=== PATIENT | female | born 1960 | race Caucasian/White ===

== ENCOUNTER 2019-08-05 23:50 | Inpatient (IN) | payer MEDICAID ==
[~2019-08-05] VITALS: Ht 152.4 cm; Wt 96.2 kg
[2019-08-06] MEDS ORDERED: PROAIR HFA8.5 GM INH (00:59)
[2019-08-06] MEDS ORDERED: ASPIRIN ADULT L81 M1 PO (01:00)
[2019-08-06] MEDS ORDERED: LIPITOR20 MG PO (01:00)
[2019-08-06] MEDS ORDERED: BUSPAR5 MG PO (01:02)
[2019-08-06] MEDS ORDERED: VITAMIN D350000 UNIT PO (01:03)
[2019-08-06] MEDS ORDERED: COLACE100 MG PO (01:04)
[2019-08-06] MEDS ORDERED: DEPAKOTE DR500 MG PO (01:04)
[2019-08-06] MEDS ORDERED: EPIPEN 2-P0.3 MG/0.3 IM (01:05)
[2019-08-06] MEDS ORDERED: FERROUS SULFAT325 MG PO (01:06)
[2019-08-06] MEDS ORDERED: TRELEGY ELLIPT1 EACH INH (01:07)
[2019-08-06] MEDS ORDERED: NATURE'S BLEND F1 MG PO (01:08)
[2019-08-06] MEDS ORDERED: IBUPROFEN600 MG PO (01:09)
[2019-08-06] MEDS ORDERED: LACTULOSE10 GM PO (01:10)
[2019-08-06] MEDS ORDERED: Synthroid,Levo25 MCG PO (01:11)
[2019-08-06] MEDS ORDERED: LORATADINE10 M3 PO (01:11)
[2019-08-06] MEDS ORDERED: COZAAR100 MG PO (01:12)
[2019-08-06] MEDS ORDERED: OMEPRAZOLE MAGN20 MG PO (01:13)
[2019-08-06] MEDS ORDERED: LOPRESSOR25 MG PO (01:13)
[2019-08-06] MEDS ORDERED: ZENPEP PO (01:18)
[2019-08-06] MEDS ORDERED: SEROQUEL25 MG PO (01:23)
[2019-08-06] MEDS ORDERED: TRAZODONE150 MG PO (01:25)
[2019-08-06] MEDS ORDERED: EFFEXOR XR75 MG PO (01:26)
[2019-08-06] MEDS ORDERED: VITAMIN B-1100 M1 PO (01:27)
[2019-08-06 05:00] VITALS: BP 115/70
--- NOTE | 2019-08-06 05:00 | NUR ---
PHAN CURTIS a 59 year old F admitted via stretcher from the OTHER as a voluntary admission. Arrived on unit at 0500. ALLERGIES: BEE VENOM. Vital signs are: [id number] 115/70. The client's guardian,Evan Lynn,gave verbal consent via telephone for the following forms with stated understanding: Authorization For The Release of Medical Information, Clothing List, Consent to Voluntary Admission and Hospitalization, Consent and Release Forms/Receipt of Rights, Acknowledgement of Advance Directive Information, Behavioral Health Consent Form, and Informed Consent of Medications. Admitted under the services of Dr. GAVINO GILES,[facility]. A search was conducted and hazardous articles were removed. Client was oriented to the unit. Patient irritable and paranoid during admission. ANDREI RODGERS A
--- NOTE | 2019-08-06 05:25 | NUR ---
Skin assessment done and no wounds seen. MD notified and awaiting admission orders.
--- NOTE | 2019-08-06 05:29 | NUR ---
CALLED HOSPITALIST [phone], INFORMED OF NEW ADMISSION AND MED REC BEING COMPLETE READY FOR REVIEW. STATED TO PLACE CONSULT UNDER . NO OTHER ORDERS RECEIVED.
[2019-08-06 06:11] VITALS: BP 115/70
[2019-08-06 07:39] LABS: VALPROIC ACID (DEPAKENE) 49.4 ug/ml (50-100)
[2019-08-06 07:44] LABS: THYROID STIM HORMONE (HS) 3.05 uIU/ml (0.358-4.75)
--- NOTE | 2019-08-06 08:07 | NUR ---
PT AWAKE, ALERT AND VERBAL. RESPS EASY AND EVEN ON ROOM AIR. EATING BREAKFAST WITH PEERS IN DINING ROOM AT THIS TIME. DU PMHNP-BC ON UNIT TO SEE PT AT THIS TIME, UPDATE GIVEN.
[2019-08-06 08:26] LABS: VITAMIN D, 25-HYDROXY 29.4 ng/mL (30-100)
[2019-08-06 08:49] VITALS: BP 115/70
--- NOTE | 2019-08-06 08:53 | NUR ---
JEREL SOUZA MADE AWARE OF ADMISSION THIS MORNING AND THAT PT WAS SIGNED INTO UNIT BY LEGAL GUARDIAN.
--- NOTE | 2019-08-06 10:25 | NUR ---
AND ON UNIT TO SEE PT AT THIS TIME. MADE AWARE PT'S HOME MEDICATIONS HAVE NOT YET BEEN RECONCILED. ALSO MADE AWARE OF NEED FOR SKIN TEAR ORDERS TO OPEN AREA ON RIGHT NECK/SHOULDER AREA.
--- NOTE | 2019-08-06 15:15 | NUR ---
SPOKE TO VIA TELEPHONE, MADE AWARE HOME MEDICAL MEDICATIONS HAVE NOT YET BEEN CONTINUED.
--- NOTE | 2019-08-06 16:50 | NUR ---
MED REC REVIEWED AND UPDATED PER LONGTERM RECORDS, DOSAGES REVIEWED WITH ZE SURVIVAL SPECIALIST AT THIS TIME, NNO RECEIVED, WILL REVIEW WITH IN THE MORNING PER SURVIVAL SPECIALIST RECOMMENDATION.
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
--- NOTE | 2019-08-06 17:48 | NUR ---
PSYCHOSOCIAL HISTORY COMPLETED THIS DATE.
[2019-08-06 19:59] VITALS: BP 110/68
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
--- NOTE | 2019-08-07 02:09 | NUR ---
pulled dresssing to shoulder off again
--- NOTE | 2019-08-07 04:55 | NUR ---
24 HR chart check completed.
--- NOTE | 2019-08-07 06:10 | NUR ---
LABS DRAWN BUT INBOUND SALES REPRESENTATIVE SAID SHE WAS IRRITABLE AND DIFFICULTY TO REDIRECT
[2019-08-07 06:30] LABS: BASO % 0.4 % (0.0-1.0); EOS # 0.1 10*3/uL (0.0-0.4); EOS % 1.9 % (1.0-4.0); HEMATOCRIT 41.2 % (37.0-47.0); HEMOGLOBIN 13.2 g/dl (12.0-16.0); LYMPH % 39.7 % (27.0-41.0); MONO # 1.5 10*3/uL (0.1-1.0); MONO % 19.2 % (3.0-9.0); NEUT # 2.8 10*3/uL (2.3-7.9); NEUT % 37.5 % (47.0-73.0); PLATELET COUNT AUTOMATED 281 10*3/uL (130-400); WHITE BLOOD COUNT 7.5 10*3/uL (4.8-10.8)
[2019-08-07 06:40] LABS: ALBUMIN 2.7 gm/dl (3.1-4.5); BUN 8 mg/dl (7-24); CHLORIDE 108 mmol/L (98-107); POTASSIUM 4.2 mmol/L (3.5-5.1); SODIUM 141 mmol/L (136-145)
[2019-08-07 06:44] LABS: ALKALINE PHOSPHATASE 50 U/L (45-117); CREATININE 0.48 mg/dL (0.55-1.02); SGOT/AST 12 IU/L (3-35); SGPT/ALT 17 U/L (12-78); TOTAL PROTEIN 5.9 gm/dL (6.4-8.2)
--- NOTE | 2019-08-07 07:45 | NUR ---
HOME MEDICATIONS REVIEWED WITH , HE STATES HE WILL ADJUST.
--- NOTE | 2019-08-07 07:54 | NUR ---
PHAN CURITS [id number] Please refer to the physician's history and physical for past medical history, comorbid conditions, and allergies. Diagnosis: SCHIZOAFFECTIVE DISORDER Casa Score: 20,LOW OR NO RISK WOUND DESCRIPTIONS: Wound Number: 1 Location of the wound: right clavicle Type of wound: scab Thickness: Partial Size: 0.2cm x 0.5cm x <0.1cm Tunneling: none Undermining: none Sinus Tract: none Presence of Exudate: none Amount: None Color: Red Odor: None Periwound Skin Appearance: Normal Wound edges: approximated Pain (associated with wound): none at time of assessment How does patient state this happened? pt states she picked the area because she was itchy Surface the patient is resting on: Proform SKIN PREVENTION RECOMMENDATION: 1. Pressure redistribution support surface as appropriate 2. Elevate heels 3. Remove boots/TEDS every shift and reapply 4. Head of bed 30 degrees as tolerated 5. Assess nutrition and hydration 6. Manage moisture 7. Avoid the use of containment devices while in bed 8. Use absorptive products on surfaces limit layers of linens on bed 9. Turn and reposition every 1-2 hours in bed and every 1 hour in chair as tolerated 10. Weight shifts every 15 minutes while up in chair 11. Offloading with pillows or device to keep heels elevated off bed 12. Monitor skin at least every shift 13. Inspect under medical devices twice a day WOUND TREATMENT RECOMMENDATIONS: Clarify skin tear guidelines: Cleanse right clavicle with nss and apply sureprep around the wound hydrogel to wound bed and cover with bandaid daily and prn for soiling.
[2019-08-07 07:55] VITALS: BP 117/65
--- NOTE | 2019-08-07 08:09 | NUR ---
PHYSICAL THERAPY Screen received as well as orders for PT will follow, thank you. Tia Connelly PT
--- NOTE | 2019-08-07 08:15 | NUR ---
Treatment Plan meeting was held with Dr. Akhtar, RN, AT, SWEATBAND MAKER-S and Bingo Worker in attendance. Plan for discharge at the end of the week or Beginning of next week. Pt. is a Resident of [facility]. Will reach out to facility today to discuss discharge planning.
--- NOTE | 2019-08-07 08:38 | NUR ---
Dr. Espinosa stated to put wound care recommendations in the hospitalist office for Dr. Corral.
--- NOTE | 2019-08-07 08:38 | NUR ---
Nursing screen and Occupational Therapy referral received. Thank you. Osiris Duran OTR/L
--- NOTE | 2019-08-07 09:15 | NUR ---
ON UNIT TO SEE PT AT THIS TIME.
--- NOTE | 2019-08-07 11:40 | NUR ---
AM GROUP/EXERCISE AND CURRENT EVENTS PT DID NOT ATTEND MORNING GROUP THERAPY, PT WAS STILL IN BED SLEEPING.
--- NOTE | 2019-08-07 12:17 | NUR ---
Spoke with Elmer in Admissions at [facility]. Notified of Plans to discharge at the end of the week or Beginning of Next week. Provided with Updates and Faxed Clinical Updates to Facility [phone].
--- NOTE | 2019-08-07 13:24 | NUR ---
P- ANGRY/IRRITABLE, ISOLATIVE, NONCOMPLIANT WITH FALL RISK PRECAUTIONS, SELECTIVE WITH MEDICATIONS, UNCOOPERATIVE WITH NURSING ASSESSMENT. REFUSES TO LEAVE WOUND DRESSING IN PLACE SKIN TEAR TO RIGHT CLAVICLE. PREOCCUPIED WITH WHEN SHE IS GOING TO GET TO GO HOME. I- ORIENTATION, MOOD AND BEHAVIOR ASSESSED. ASSESSED PT FOR SI/HI, INTENT OR PLAN. ASSESSED PT FOR S/S HALLUCINATIONS, PARANOIA AND/OR DELUSIONS. MEDICATIONS ADMINISTERED PER PHYSICIANS ORDERS, COMPLIANCE ENCOURAGED. ENCOURAGED PT TO ATTEND AND PARTICIPATE IN [facility]Y [facility] GROUPS AND ACTIVITIES. EDCUATION PROVIDED REGARDING IMPORTANCE OF ADHERING TO FALL RISK PRECAUTIONS AND LEAVING WOUND DRESSING IN PLACE. R- PT IS ALERT AND ORIENTED X4. MEMORY GAPS NOTED. RESPS EASY AND EVEN ON ROOM AIR. MOOD IS ANGRY/IRRITABLE, AFFECT FLAT. SPEECH IS SOFT, COHERENT, ABLE TO MAKE NEEDS KNOWN WITHOUT DIFFICULTY. PT DENIES SI/HI, INTENT OR PLAN. PT DENIES HALLUCINATIONS, NO RESPONSE TO INTERNAL STIMULI NOTED. NO PARANOIA OR DELUSIONS NOTED. PT STATES SHE IS HERE DUE TO HER BEHAVIOR PROBLEMS AT [facility]. PT IS ISOLATIVE TO ROOM, REFUSED TO ATTEND MORNING GROUP TODAY. PT ONLY CAME OUT OF ROOM LONG ENOUGH FOR BREAKFAST AND THEN RETURNED TO BED. PT DECLINED TO GET UP FOR LUNCH DESPITE MULTIPLE ATTEMPTS BY THIS NURSE, PT ROLLED OVER AND STATES "I'M GOING BACK TO BED". DESPITE EDUCATION AND FREQUENT REMINDERS, PT REMAINS NONCOMPLIANT WITH FALL RISK PRECAUTIONS, WILL NOT ALLOW CLIP ALARM TO BE APPLIED. PT CONTINUES TO TAKE OFF WOUND DRESSING TO RIGHT CLAVICLE DESPITE EDUCATION. PT SELECTIVE WITH MEDICATIONS. NO DISTRESS NOTED. PT OFFERS NO COMPLAINTS OTHER THAN SHE WANTS TO GO HOME. P- PLAN TO CONTINUE CURRENT TREATMENT, CONTINUE TO MONITOR MOOD AND BEHAVIORS, PROVIDE APPROPRIATE REORIENTATION, REDIRECTION AND 1:1 NEEDED. CONTINUE TO ENCOURAGE MEDICATION COMPLIANCE WELL GROUP ATTENDANCE AND PARTICIPATION. CONTINUE TO PROVIDE EDUCATION AND REMINDERS REGARDING USE OF FALL RISK PRECAUTIONS.
--- NOTE | 2019-08-07 14:50 | NUR ---
Patient not available for Occupational Therapy at this time; she is in group therapy session sitting in w/c. OTR will attempt at a later date. Osiris Duran OTr/l
--- NOTE | 2019-08-07 15:40 | NUR ---
PM GROUP/WREATHS PT ATTENDED AND PARTICIPATED IN AFTERNOON GROUP. PT WAS QUIET AND ON TASK. PT EXPRESSED NO AGITATION OR AGGRESSION WHILE IN GROUP.
--- NOTE | 2019-08-07 16:29 | NUR ---
SHIFT CHART CHECK COMPLETED.
--- NOTE | 2019-08-07 17:24 | NUR ---
OFFERED TO ASSIST PT WITH SHOWER AT THIS TIME, PT REFUSED, STATES "NO, I'M ALRIGHT. MAYBE LATER".
[2019-08-07 19:36] VITALS: BP 113/63
--- NOTE | 2019-08-07 20:43 | NUR ---
EVENING/MUSIC/CRAFTS/GAME PT SLEEPING IN BED AT THIS TIME, PT CHOSE NOT TO WAKE FOR GROUP THERAPY. PT WILL CONTINUE TO BE ENCOURAGED TO ATTEND ANDP ARTICIPATE IN FUTURE GROUP SESSIONS.
--- NOTE | 2019-08-07 21:10 | NUR ---
REFUSED 1:1. DID TAKE MEDICATIONS WITH ENCOURAGMENT. REFUSED SNACK. KEEPS HOB IN HIGH FOWLERS POSITION WITH NECK BENT. REFUSES TO LOWER HOB. MOVES SELF IN BED.
--- NOTE | 2019-08-08 00:10 | NUR ---
PT UP AND AWAKE. STRONG SMELL OF ODOR NOTED. TAKEN TO SHOWER AFTER MUCH ENCOURAGEMENT. SHOWER ,HAIR WASH AND TEETH BRUSHING COMPLETED. TOTAL BED CHANGE DONE.
--- NOTE | 2019-08-08 04:21 | NUR ---
Upon discharge recommend patient to follow up for wound care in outpatient setting continue current wound care orders at discharging facility.
[2019-08-08 07:39] VITALS: BP 108/64
--- NOTE | 2019-08-08 08:15 | NUR ---
Treatment Plan meeting was held with Nurse Practitioner, RN, AT, LIBBY-S and Shipping Inspector in attendance. Plan for discharge at the end of the week, beginning of next week. Pt. will return to [facility] at discharge.
--- NOTE | 2019-08-08 08:20 | NUR ---
DARA KEE ON UNIT TO SEE PATIENT
[2019-08-08 09:51] VITALS: BP 126/62
--- NOTE | 2019-08-08 10:03 | NUR ---
Rochelle KEE notified of wound care recommendations.
--- NOTE | 2019-08-08 11:38 | NUR ---
AM GROUP PT DID NOT ATTEND MORNING GROUP THERAPY. PT WAS STILL IN BED SLEEPING
--- NOTE | 2019-08-08 15:19 | NUR ---
PHYSICAL THERAPY Kelsial completed pt moderate level of [id number]. Pt resident of [facility] recomend return to facility at discharge w f/u therapy as approp. PT to work on tranfers,amb, strengthening, safety. Tia Connelly PT
--- NOTE | 2019-08-08 17:42 | NUR ---
P: IRRITABLE, ANGER, ISOLATIVE DURING THE DAY. I: ONE ON ONE, ENCOURAGED PATIENT TO ATTEND GROUP SESSION AND TO COME OUT OF ROOM AND SOCIALIZE WITH STAFF AND OTHER PATIENTS. R: PATIENT CONTINUES TO BE ISOLATIVE THIS MORNING AND AFTERNOON. PATIENT UP FOR MEALS, AND SOCIALIZING MORE IN THE EVENING. PATIENT IS ALERT AND ORIENT TO PERSON, PLACE, TIME AND SITUATION WITH UNDERLYING IRRITABILITY. MOOD IS SLIGHTLY IRRITABLE. DENIES ANY HALLUCINATIONS, DELUSIONS, HI/SI OR PAIN. MEDICATION COMPLAINT WITH EDUCATION PROVIDED. Q 15 MINUTE SAFETY CHECKS MAINTIANED. PATIENT ISOLATIVE, RESTING IN BED MOST OF THE DAY. INDEPENDENT WITH ACTIVITIES OF DAILY LIVING, CONTINENT OF BOWEL AND BLADDER. SET UP FOR MEALS, INTAKES ARE FAIR WITH ADEQUATE FLUIDS. POOR SAFETY AWARENESS USING WHEELCHAIR AND LEANING FORWARD. VERBAL REMINDERS FOR SAFETY. AMBULATES WITH STEADY GAIT WITH EVENING. PREOCCUPIED ON WHEN SHE IS GOING HOME. P: CONTINUE TO MONITOR MOOD, PROVIDE ONE ON ONE FOR EMOTIONAL SUPPORT AND ENCOURAGE SOCIAL INTERACTIONS.
--- NOTE | 2019-08-08 19:25 | NUR ---
PATIENT MORE INTERACTIVE WITH EVENING AFTER DINNER, IMPROVED MOOD. MEDICATION COMPLIANT. ALLOWED NURSE TO DO WOUND TREATMENT TO RIGHT SCAPULA. ENCOURAGED PATIENT TO KEEP BANDAGE ON.
[2019-08-08 20:00] VITALS: BP 113/63
--- NOTE | 2019-08-08 21:05 | NUR ---
MORE INTERACTIVE DURING SNACK. READING A BOOK. STATES HAD A GOOD DAY. THEN TOOK NICOTENE PATCH OFF RIGHT ARM AND HANDED IT TO ME SAYING I SAID I DIDN'T WANT THIS. REVIEWED MEDICATIONS AND SHE WENT BACK TO BED.
--- NOTE | 2019-08-08 22:45 | NUR ---
TOOK DRESSING OFF FROM NECK. REFUSES TO HAVE REPLACED. CONTINUES TO DISREGARD SAFETY PROTOCOLS ON UNIT
--- NOTE | 2019-08-09 02:45 | NUR ---
IN QUIET ROOM COLORING
--- NOTE | 2019-08-09 03:03 | NUR ---
24 HR chart check completed.
[2019-08-09 07:29] VITALS: BP 112/64; BP 138/61
--- NOTE | 2019-08-09 07:30 | NUR ---
PHYSICAL THERAPY Patient was sitting in activity room chair this am when approached for therapy visit and was observed ambulating without AD prior to treatment. Patient identified by name / , reporting 8/10 L hip pain. OT printing bindery assistant was present for observation only during SPECIAL PROGRAMS DIRECTOR visit as patient performed sit to stand transfer SBA x 1. Patient ambulated CGA, no AD, 50'x 1, demonstrating "waddling" gait pattern, decreased stride and bouts of unsteady step sequence during 180 degree turns. Patient assessed for increased L hamstring tightness and instructed on seated stretch to promote improve L side heel strike, 5 reps with 5 second hold. Patient completed several more sit to stand transfers, SBA and reported decreased L LE tightness. Patient remained in activity room chair awaiting breakfast, under [facility] staff Supervision. Will continue per POC as tolerated, total treatment time 17 minutes. Bandar Huitron, SPECIAL PROGRAMS DIRECTOR
--- NOTE | 2019-08-09 08:50 | NUR ---
DARA CLARK CNP ON UNIT TO ASSESS PATIENT.
--- NOTE | 2019-08-09 09:59 | NUR ---
Treatment Plan meeting was held with Dr. Akhtar, RN, AT, TELEVISION STATION MANAGER-S and Professor Of Vegetable Science in attendance. Plan for discharge Wednesday with Possible Wednesday discharge. Pt. will return to [facility].
--- NOTE | 2019-08-09 11:39 | NUR ---
AM GROUP PT WAS IN BED AT THE START OF GROUP AND DECLINED ATTENDING. PT WAS ENCOURAGED AND STATED, "I WANT A CIGARETTE! CAN'T YOU JUST TAKE ME OUTSIDE TO SMOKE REAL QUICK?"
--- NOTE | 2019-08-09 12:38 | NUR ---
P: ISOLATIVE, DEPRESSED MOOD, ANGRY/IRRITABLE; PATIENT WANTS DISCHARGED AND TO BE ABLE TO SMOKE. DECLINES NICOTINE PATCH; STATES "IF I CAN'T SMOKE THEN I SLEEP" I: ONE ON ONE FOR EMOTIONALS SUPPORT, ENCOURAGE PATIENT TO COME OUT OF ROOM AND SOCIALIZE IN DINING ROOM. TALKED TO PATIENT ABOUT GOALS AND ACTIVITIES. PATIENT STATED "I KNOW WHAT YOU ARE SAYING" REDIRECTED NEEDED. R: INEFFECTIVE. PATIENT RETURNED TO ROOM TO LAY DOWN AND SLEEP. PATIENT IS ALERT AND ORIENTED TO PERSON, PLACE, TIME AND SITUATION WITH MEMORY GAPS. PATIENT IS SELF AWARE AND BECOMES FUSTRATED. MOOD IS DEPRESSED AND ISOLATIVE. DEMENDING AND RUDE TO STAFF AT TIMES. DENIES ANY HALLUCINATIONS, DELUSIONS, HI/SI OR PAIN. PATIENT DOES ADMIT TO SEEING SHADOWS OF PEOPLE BUT NOT TODAY. MEDICATION COMPLAINT WITH EDUCATION. Q 15 MINUTE SAFETY CHECKS. INDEPENDENT WITH ACTIVITIES OF DAILY LIVING, CONTINENT OF BOWEL AND BLADDER, SET UP FOR MEALS, INTAKES ARE GOOD WITH ADEQUATE FLUIDS. P: CONTINUE TO MONITOR MOOD, PROVIDE ONE ON ONE FOR EMOTIONAL SUPPORT, ENCOURAGE PATIENT TO ATTEND AND PARTICIPATE IN GROUP SESSION. BE MORE INTERACTIVE WITH STAFF AND OTHER PATIENTS. PROVIDE REDIRECTION NEEDED.
--- NOTE | 2019-08-09 13:50 | NUR ---
Occupational Therapy referral received and screen received. Patient was independent in functional mobility on the unit. Patient being seen by PT. Patient is able to perform self care at IA level. Nursing reports patient needs much motivation for activity and ADLs.At this time no further OT indicated. Recommend return to LTC with supervision for mobility and ADL set up. Thank you. Rajiv Duran OTr/L
--- NOTE | 2019-08-09 15:38 | NUR ---
PM GROUP/CARDS PT WAS PRESENT AT THE START OF GROUP BUT CHOSE NOT TO STAY AND PARTICIPATE. PT RETURNED TO ROOM
--- NOTE | 2019-08-09 17:28 | NUR ---
SHIFT CHART CHECK COMPLETED.
--- NOTE | 2019-08-09 19:14 | NUR ---
PATIENT ALLOWED THIS NURSE TO COMPLETE DRESSING TREATMENT TO RIGHT SCAPULA. ENCOURAGE TO KEEP DRESSING TREATMENT IN PLACE. PATIENT UP IN DINING ROOM PLAY CARDS WITH OTHER PATIENTS IN DINING ROOM. PREOCCUPIED WITH SHE IS GOING TO BE DISCHARGED. ENCOURAGED PATIENT TO TALK WITH DR. MANCIA IN THE MORNING.
[2019-08-09 19:50] VITALS: BP 105/75
--- NOTE | 2019-08-09 20:13 | NUR ---
PT IRRITABLE. STATES "THEY TOLD ME I HAD A BAD DAY. I DIDN'T HAVE A BAD DAY. I JUST SLEPT A LITTLE. I WANT TO GO HOME TOMORROW". PT REDIRECTED. ENCOURAGED TO EXPRESS FEELINGS CALMLY. ENCOURAGED TO SPEAK WITH DR. MANCIA DURING AM ROUNDS. PT RECEPTIVE TO REDIRECTION. CALMED AFTER 1:1. ABLE TO CALMLY EXPRESS SELF, STATING "I JUST WANT TO GO HOME. I FEEL LIKE THE ONLY PART OF MY DAY THAT WAS BAD WAS BECAUSE I WANTED TO REST". PT EDUCATED ON TREATMENT PLAN. WILL CONTINUE TO REDIRECT AND ENCOURAGE PT TO CALMLY VERBALIZE FEELINGS. WILL ENCOURAGE PT TO FOLLOW TREATMENT PLAN. WILL PROVIDE MEDICATIONS PER POLICY. Q15 MIN MONITORING FOR SAFETY.
--- NOTE | 2019-08-10 00:59 | NUR ---
The patient has no complaints and is resting comfortably. CHELLY GLASS
--- NOTE | 2019-08-10 05:49 | NUR ---
PT SLEPT 2.5 HOURS. PT WOULD PRETEND TO SLEEP T/O NIGHT. NOTED TO BE IN ROOM TALKING FOR THE MAJORITY OF THE NIGHT.
--- NOTE | 2019-08-10 07:10 | NUR ---
PHYSICAL THERAPY Patient seen this am for therapy visit and was sitting in activity room chair at table upon therapist arrival. Patient identified by name / and voices mild L hip pain, but unable to rate on 0-10 scale. OT assistant auto center manager was present for observation only during SLEEP MEDICINE PHYSICIAN treatment as patient transfers sit to stand with Supervision. Patient ambulates with no AD, Supervision, 100'x 1, demonstrating L side lateral shift, decreased stride and increased fatigue. Patient returned to activity room chair with no LOB and remained under [facility] staff Supervision. Will continue per POC as tolerated, total treatment time 14 minutes. Bandar Huitron, SLEEP MEDICINE PHYSICIAN
[2019-08-10 07:33] VITALS: BP 121/65
--- NOTE | 2019-08-10 09:17 | NUR ---
P-ISOLATIVE, IRRITABLE I-REDIRECTION WITH 1:1 THERAPEUTIC INTERVENTIONS AND PRESENT REALITY. EDUCATE AND ENCOURAGE MEDICATION COMPLIANCE R-PATIENT MEDICATION COMPLIANT. PATIENT IRRITABLE DURING SHIFT AND ATTEMPTING TO ISOLATE SELF TO ROOM. PATIENT ENCOURAGED TO STAY OUT OF ROOM AND PATIENT IN QUIET ROOM TO DECREASE STIMULI. PATIENT AMBULATING AND ON UNIT WITH STEADY GAIT. PATIENT TOILETING SELF THROUGHOUT SHIFT. PATIENT PROVIDED NOURISHMENT AND FLUIDS. PATIENT STATING TO THIS NURSE "WILL YOU PUT IN A GOOD WORD FOR ME WITH DR MANCIA SO I CAN GO HOME". PATIENT EDUCATED ON MEDICATION AND THIS NURSE CLARIFIED LACTULOSE ORDER WITH PATIENT. P-CONTINUE TO ENCOURAGE MEDICATION COMPLIANCE, CONTINUE TO PRESENT REALITY, ENCOURAGE GROUP THERAPY WHILE AWAKE
--- NOTE | 2019-08-10 09:56 | NUR ---
DR SOUZA ON UNIT TO SEE PATIENT
[2019-08-10 09:58] VITALS: BP 117/65
--- NOTE | 2019-08-10 09:58 | NUR ---
PATIENT IN QUIET ROOM AND YELLING OUT. PATIENT YELLING OUT FOR HELP. THIS NURSE FOUND PATIENT LAYING ON THE FLOOR IN QUIET ROOM PATIENT STATING "THIS WOULD NOT HAVE HAPPENED IF I HAD MY WHEELCHAIR". PATIENT STATED "I WAS TRYING TO GET UP" PATIENT ATTEMPTING TO AMBULATE WITHOUT ASSISTANCE. DR SOUZA ON UNIT AND ASSESSED PATIENT. NEW ORDER FOR RIGHT KNEE XRAY. DISTRIBUTION MANAGER UPDATED. NURSING PRODUCT SUPPORT TECHNICIAN AWARE. PATIENT'S GUARDIAN UPDATED
--- NOTE | 2019-08-10 10:19 | NUR ---
Treatment team meeting held with Dr Akhtar, RN, and RHIANNA. Plan is for pt to discharge tomorrow returning to [facility].
--- NOTE | 2019-08-10 10:48 | NUR ---
RADIOLOGY ON UNIT TO DO RIGHT KNEE XRAY
--- NOTE | 2019-08-10 11:46 | NUR ---
AM GROUP PT CHOSES NOT TO ATTEND GROUP THERAPY. PT STAYED IN BED.
--- NOTE | 2019-08-10 13:47 | NUR ---
PATIENT WITH COMPLAINT OF ABOMINAL PAIN AT THIS TIME. PATIENT MEDICATED WITH TYLENOL 650MG. MEDICATION WITH EFFECTIVE RESULTS. PATIENT TOLERATING FLUIDS AND NOURISHMENT AT THIS TIME
--- NOTE | 2019-08-10 15:22 | NUR ---
Nursing screen received and chart reviewed. Per chart review, a OT screening was completed on 08/09/19, where patient demonstrated independent mobility and Mod I ADLs. No further OT is indicated at this time. Thank you. Patricia Cunningham, OTR/L
--- NOTE | 2019-08-10 15:54 | NUR ---
PM GROUP/WATERCOLORS PT ATTENDED AFTERNOON GROUP THERAPY AND PARTICIPATED BY WORKING ON A WATERCOLOR. PT WAS AGITATED AND STATED, "I KNOW WHAT YOU GUYS ARE TRYING TO DO! YOU'RE FORCING ME TO STAY OUT OF MY ROOM SO I CAN'T LAY DOWN!" PT BEGAN CRYING AND STATING, "I JUST WANT TO GO HOME." PT DID RESPOND TO REDIRECTION AND WAS PLAYING CARDS GROUP ENDED. PT EXHIBITED NO AGGRESSIVE BEHAVIORS WHILE IN GROUP.
--- NOTE | 2019-08-10 16:35 | NUR ---
PATIENT IN DINING AREA ASKING THIS NURSE FOR A PAIR OF SCISSORS. PATIENT STATING "I NEED TO CUT THIS BRACELET OFF". THIS NURSE LET REMINDED PATIENT THAT SHE DID FALL EARLIER THIS SHIFT. PATIENT STATED "SO WHAT" AND BIT FALL RISK BRACELET OFF
--- NOTE | 2019-08-10 17:15 | NUR ---
Shift chart check completed.
[2019-08-10 19:39] VITALS: BP 101/72
--- NOTE | 2019-08-10 21:40 | NUR ---
PT IRRITABLE AND LABILE. COMING UP TO NURSES STATION WINDOW STATING "I WANT TO CALL [facility] RIGHT NOW" PT REDIRECTED. ENCOURAGED TO EXPRESS FEELINGS CALMLY. EDUCATED ON UNIT POLICY REGARDING CALLING FACILITIES. PT UNRECEPTIVE TO REDIRECTION AT FIRST, ESCALATING BEHAVIORS. PT YELLING, CURSING, FLIPPED THIS NURSE OFF. PT STARTED TO GESTURE IF PUNCHING WINDOW TO NURSES STATION AND THEN SAID "F*K THAT" AND WALKED OFF. PT REAPPROACHED IN A FEW MINUTES, PT IS MUCH CALMER AT THIS TIME. SMILING, CONVERSING APPROPRIATELY. WILL CONTINUE TO REDIRECT AND ENCOURAGE PT TO CALMLY VERBALIZE FEELINGS. WILL ENCOURAGE PT TO FOLLOW TREATMENT PLAN. WILL PROVIDE MEDICATIONS PER POLICY. Q15 MIN MONITORING FOR SAFETY.
--- NOTE | 2019-08-10 23:58 | NUR ---
23:20 PT AGREED TO USE BIPAP. BIPAP INITIATED. ID RESTING COMFORTABLY. 22:50 CALLED BY THE RN. RN STATED PT COULD NOT TOLERATE BIPAP ANYMORE. PT REFUSED BIPAP. PT PLACED ON 2 L NC.
--- NOTE | 2019-08-11 04:12 | NUR ---
The patient has no complaints and is resting comfortably. CHELLY GLASS
--- NOTE | 2019-08-11 07:54 | NUR ---
PHYSICAL THERAPY Screen recieved and pt has been evaluated on caseload Tia Connelly PT PHYSICAL THERAPY 1:1 Time: Pain on a scale of 0-10 > Prior to treatment: Post treatment: Progress note: TIA CONNELLY
--- NOTE | 2019-08-11 08:15 | NUR ---
Treatment Plan meeting was held this a.m. with Dr. Akhtar, RN, AT, AB INITIO ETL DEVELOPER-S and Long Distance Operator in attendance. Plan for discharge Wednesday with jonathan to [facility].
[2019-08-11 08:39] VITALS: BP 118/72; BP 138/82
--- NOTE | 2019-08-11 11:30 | NUR ---
Occupational therapy orders received and chart reviewed. Per chart review and discussion with [facility] staff, patient had a recent fall from the couch on [facility]. Patient observed completing independent toileting hygiene, clothing management, and grooming this date. Patient is independent with ADLs with encouragement. Patient is unsafe in her w/c secondary to her feet not touching the ground for safe self-propelling. Patient is a fall risk when using the wheeled walker. Patient to be deferred to physical therapy to continue addressing mobility and transfer needs at this time. OT recommends patient have direct supervision when patient is in the wheelchair or using the wheeled walker for ambulation to maximize patient safety. Thank you. Patricia Cunningham, OTR/L
--- NOTE | 2019-08-11 11:43 | NUR ---
AM GROUP PT DID NOT ATTEND MORNING GROUP THERAPY. PT WAS IN BED SLEEPING
--- NOTE | 2019-08-11 14:16 | NUR ---
PHYSICAL THERAPY Pt with fall on unit 08/10 painful R knee xray negative. Per nsg was lying on couch trying to get up and fell. Observed pt on unit w staff transfers from toilet and Amb to w/c no AD with supervision. Pt more agitated this AM per staff. Using w/c to bring pt to lunch room. Discussed w staff/nurse Analia pt was using w/c at facility [facility] the w/c on U does not fit pt as feet do not reach ground no anitippers allowed and per staff sits at edge or will stand up and not lock brakes. Unable to modify w/c on unit and therefore recomend only to use to transport pt as need and not to allow pt to use w/c to mobilize on unit on her own as not safe. Also with amb on unit to provide cg to supervison at all times due to fall history. Will cont to follow for amb has used fww at facility but needs assist at all time. Will follow over next 2 to 3 days for amb assess if FWW would be approp for unit with supervision or cont to amb with only cg to supervision no AD. Pt will require assist cg-supervision for kanay at all times, will follow Tia Connelly PT
--- NOTE | 2019-08-11 15:37 | NUR ---
PM GROUP PT DID NOT ATTEND AFTERNOON GROUP. PT STAYED IN BED.
--- NOTE | 2019-08-11 15:48 | NUR ---
PT WITH 2 SMALL BROWN LIQUID EMESIS WITHIN APPROXIMATELY THE LAST 30 MINUTES. PT DID CONSUME CHOCOLATE ICE CREAM FOR LUNCH. PT STATES NAUSEA COMES ON SUDDENLY AND THEM STOMACH FEELS BETTER AFTER THROWING UP. PT STATES SHE MOVED HER BOWELS YESTERDAY. PT DENIES ANY OTHER COMPLAINTS. VITALS STABLE AND ARE FOLLOWS: [id number]/62-95% ROOM AIR. CALL PLACED TO TO MAKE AWARE OF THE ABOVE, STATES HE WILL REVIEW AND ENTER NEW ORDERS.
--- NOTE | 2019-08-11 16:27 | NUR ---
PRN ZOFRAN 4MG ODT GIVEN AT THIS TIME. PT CONTINUING TO HAVE EMESIS AT THIS TIME, THIS RN VISUALIZED TABLET DISSOLVING UNDER TONGUE. WILL MONITOR FOR EFFECTIVENESS.
--- NOTE | 2019-08-11 16:45 | NUR ---
PT STATES SHE IS STARTING TO FEEL BETTER. WILL CONTINUE TO MONITOR.
--- NOTE | 2019-08-11 17:24 | NUR ---
NO FURTHER EMESIS AT THIS TIME. PT STATES SHE FEELS BETTER BUT DECLINED DINNER, PT STATES "TO PLAY IT SAFE I BETTER NOT EAT YET" PT TAKING JESUS HARLEY AT THIS TIME. WILL CONT TO MONITOR.
--- NOTE | 2019-08-11 17:26 | NUR ---
P- IRRITABILITY NOTED AT TIMES WITH STAFF AND PEERS. FEMALE PEER WALKED BY AND PT ANGRILY STATES TO PEER "WHAT DO YOU WANT?" PT PREOCCUPIED WITH LEAVING THE HOSPITAL. ISOLATIVE TO ROOM. I- ORIENTATION, MOOD AND BEHAVIOR ASSESSED. ASSESSED PT FOR SI/HI, INTENT OR PLAN. ASSESSED PT FOR S/S HALLUCINATIONS, PARANOIA AND/OR DELUSIONS. MEDICATIONS ADMINISTERED PER PHYSICIAN'S ORDERS. ASSISTANCE WITH ADL CARE PROVIDED NEEDED. ENCOURAGED PT TO ATTEND AND PARTICIPATE IN [facility] GROUPS AND ACTIVITIES. ENCOURAGED PT TO ADHERE TO FALL RISK PRECAUTIONS. R- PT IS ALERT AND ORIENTED X4. MEMORY APPEARS INTACT. RESPS EASY AND EVEN ON ROOM AIR. MOOD IS IRRITABLE AT TIMES, AFFECT FLAT. SPEECH IS SOFT, COHERENT, ABLE TO MAKE NEEDS KNOWN WITHOUT DIFFICULTY. PT DENIES SI/HI, INTENT OR PLAN. PT DENIES HALLUCINATIONS, NO RESPONSE TO INTERNAL STIMULI NOTED. NO PARANOIA OR DELUSIONS NOTED. PT IS MEDICATION COMPLIANT WITHOUT DIFFICULTY. PT PREOCCUPIED WITH WANTING TO LEAVE THE HOSPITAL. PT OFFERS NO OTHER COMPLAINTS AT THIS TIME. PT ISOLATIVE TO ROOM, DECLINES TO ATTEND OR PARTICIPATE IN [facility] GROUPS AND/OR ACTIVITIES DESPITE ENCOURAGEMENT. PT ENCOURAGED TO ASK FOR ASSISTANCE PRIOR TO ATTEMPTING TO AMBULATE OR TRANSFER D/T FALL RISK. BED ALARM ACTIVATED. P- PLAN TO CONTINUE CURRENT TREATMENT, CONTINUE TO MONITOR MOOD AND BEHAVIORS, PROVIDE APPROPRIATE REORIENTATION, REDIRECTION AND 1:1 NEEDED. CONTINUE TO ENCOURAGE MEDICATION COMPLIANCE WELL GROUP ATTENDANCE AND PARTICIPATION.
--- NOTE | 2019-08-11 18:55 | NUR ---
PT RESTING QUIETLY IN BED WITH EYES CLOSED, EASILY AROUSES TO VERBAL STIMULI, STATES SHE IS FEELING MUCH BETTER NOW. WAS ABLE TO KEEP SOME JESUS HARLEY DOWN.
[2019-08-11 19:48] VITALS: BP 126/70
--- NOTE | 2019-08-11 22:33 | NUR ---
P-IRRITABLE I-REDIRECTION WITH 1:1 THERAPEUTIC INTERVENTIONS AND PRESENT REALITY. EDUCATE AND ENCOURAGE MEDICATION COMPLIANCE R-PATIENT MEDICATION COMPLIANT. PATIENT IRRITABLE DURING SHIFT. PATIENT STATED "I DO FEEL A LITTLE BETTER THAN I DID EARLIER". PATIENT REFUSED NOURISHMENT AT HS. PATIENT PROVIDED FLUIDS AT HS. P-CONTINUE TO ENCOURAGE MEDICATION COMPLIANCE, CONTINUE TO PRESENT REALITY, ENCOURAGE GROUP THERAPY WHILE AWAKE
--- NOTE | 2019-08-12 05:50 | NUR ---
PATIENT SLEPT 5 HOURS OF INTERRUPTED SLEEP THROUGHOUT SHIFT. Q 15 MINUTE CHECKS MAINTAINED. 24 HR chart check completed.
[2019-08-12 06:25] LABS: BASO % 0.3 % (0.0-1.0); EOS # 0.1 10*3/uL (0.0-0.4); EOS % 1.1 % (1.0-4.0); HEMATOCRIT 39.7 % (37.0-47.0); LYMPH # 2.8 10*3/uL (1.3-4.4); MEAN CORPUSCULAR HGB 33.1 pg (27.0-31.0); MEAN CORPUSCULAR HGB CONC 32.7 g/dl (33.0-37.0); MEAN PLATELET VOLUME 9.4 fl (9.6-12.3); MONO # 0.6 10*3/uL (0.1-1.0); NEUT # 2.6 10*3/uL (2.3-7.9); NEUT % 42.6 % (47.0-73.0); PLATELET COUNT AUTOMATED 302 10*3/uL (130-400); RED BLOOD COUNT 3.93 10*6/uL (4.10-5.10); RED CELL DISTRI WIDTH 11.8 % (0-14.5); WHITE BLOOD COUNT 6.2 10*3/uL (4.8-10.8)
[2019-08-12 07:55] VITALS: BP 120/72
--- NOTE | 2019-08-12 10:00 | NUR ---
DR. SOUZA ON UNIT TO ASSESS PATIENT.
--- NOTE | 2019-08-12 12:04 | NUR ---
AM GROUP/EXERCISE/MUSIC/BINGO PT ATTENDED AND PARTICIPATED IN ALL GROUP ACTIVITY. PT PLEASANT AND ON TASK WITH NO AGGRESSION OR AGITATION EXPRESSED AT THIS TIME. PT WILL CONTINUE TO ATTEND AND PARTICIPATE IN FUTURE GROUP SESSIONS.
--- NOTE | 2019-08-12 15:48 | NUR ---
PM GROUP/BEADING/MUSIC PT ATTENDED AND PARTICIPATED IN ALL GROUP ACTIVITY. PT PLEASANT AND ON TASK AT THIS TIME WITH NO AGGRESSION OR AGITATION DISPLAYED. PT WILL CONTINUE TO ATTEND AND PARTICIPATE IN FUTURE GROUP SESSIONS.
--- NOTE | 2019-08-12 16:32 | NUR ---
PATIENT IS ALERT TO PERSON, PLACE, TIME AND SITUATION; ABLE TO VOICE NEEDS. SHORT OF BREATH AT TIMES WITH TRANSFERS AND AMBULATING LONG DISTANCE. MOOD IS STABLE. DENIES ANY HALLUCINATIONS, DELUSIONS, HI/SI OR PAIN. AMBULATORY WITH STEADY GAIT. MEDICATION COMPLIANT WITH EDUCATION PROVIDED. Q 15 MINUTE SAFETY CHECKS MAINTAINED. INDEPENDENT WITH ACTIVITIES OF DAILY LIVING, CONTINENT OF BOWEL AND BLADDER. SET UP FOR MEALS, INTAKES ARE GOOD WITH ADEQUATE FLUIDS. INTERACTIVE WITH STAFF AND OTHER PATIENTS. ATTENDED AND PARTICIPATED IN GROUP SESSIONS. CONTINUE TO MONITOR FOR AGGRESSION PROVIDE ONE ON ONE FOR EMOTIONAL SUPPORT AND REDIRECT NEEDED.
[2019-08-12 19:49] VITALS: BP 120/50
--- NOTE | 2019-08-12 21:39 | NUR ---
PT IRRITABLE WITH PEERS AND STAFF. PT NOTED TO BE YELLING AT ONE PT FOR BEING TOO LOUD, STATING "GET OUT OF THIS ROOM". PT STATES ANOTHER PT IS ALWAYS REPEATING HIMSELF WHICH IS GETTING ON HER NERVES. PT THEN ANGRY WITH ANOTHER PT FOR NOT GIVING HER HIS WORDSEARCH, DESPITE HAVING TWO BOOKS OF HER OWN. REDIRECTION WITH 1:1 THERAPEUTIC INTERVENTIONS AND PRESENT REALITY. EDUCATE AND ENCOURAGE MEDICATION COMPLIANCE PATIENT MEDICATION COMPLIANT. PATIENT STATES SHE CAN'T HELP HER ANGER, SHE DOESN'T LIKE IT HERE AND WANTS TO GO HOME. PT IS SOMEWHAT RECEPTIVE TO REDIRECTION CONTINUE TO ENCOURAGE MEDICATION COMPLIANCE, CONTINUE TO PRESENT REALITY, ENCOURAGE GROUP THERAPY WHILE AWAKE, ENCOURAGE PT TO CALMLY EXPRESS SELF INSTEAD OF YELLING AT OTHERS. Q 15 MIN MONITORING PER POLICY
--- NOTE | 2019-08-13 06:32 | NUR ---
PT SLEPT 3.5 HOURS LAST HS. PT HAD DIFFICULTY FALLING ASLEEP, RESTLESS. PT WAS UP TO QUIET ROOM WORKING ON WORD SEARCHES UNTIL TIRED. PT WENT BACK TO ROOM, RESTLESS IN BED BEFORE FALLING ASLEEP.
[2019-08-13 07:27] VITALS: BP 118/60
--- NOTE | 2019-08-13 11:57 | NUR ---
AM GROUP/MUSIC/EXERCISE/GAMES PT ENCOURAGED TO ATTEND AN DPARTICIPATE BUT PT CHOSE NOT TO WAKE UP. PT REMAINED IN BED ENTIRE GROUP TIME AND WILL CONTINUE TO BE ENCOURAGED TO ATTEND AND PARTICIPATE IN FUTURE GROUP SESSIONS.
--- NOTE | 2019-08-13 14:40 | NUR ---
P: ISOLATIVE, DEPRESSED MOOD, ANGRY AND IRRITABLE. SLEEPING IN BED MOST OF THE DAY. I: ONE ON ONE, REDIRECTION, ENCOURAGED TO PARTICIPATE IN GROUP SESSION AND TO COME OUT OF ROOM TO SOCIALIZE WITH STAFF AND OTHER PATIENTS. R: INEFFECTIVE. MUCH ENCOURAGEMENT FOR PATIENT TO COME OUT OF ROOM TO EAT LUNCH. PATIENT IS ALERT AND ORIENTED TO PERSON, PLACE, TIME AND SITUATION. NO RESPONSE TO INTERNAL STIMULI OBSERVED. DENIES ANY HALLUCINATIONS, DELUSIONS, HI/SI OR PAIN. MOOD IS DEPRESSED, IRRITABLE AND ANGRY. MEDICATION COMPLAINT. Q 15 MINUTE SAFETY CHECKS. INDEPENDENT WITH ACTIVITIES OF DAILY LIVING, CONTINENT OF BOWEL AND BLADDER. SET UP FOR MEALS, ENCOURAGED PATIENT TO COME TO DINING ROOM FOR MEALS. AMBULATORY WITH STEADY GAIT. DID NOT ATTEND OR PARTICIPATE IN GROUP SESSIONS. P: CONTINUE TO MONITOR FOR AGGRESSION; PROVIDE ONE ON ONE, REDIRECTION, ENCOURAGE PATIENT TO COME OUT OF ROOM AND INTERACT WITH STAFF AND OTHER PATIENTS.
--- NOTE | 2019-08-13 15:39 | NUR ---
Shift chart check completed.
[2019-08-13 19:56] VITALS: BP 104/54
--- NOTE | 2019-08-13 21:25 | NUR ---
PT MUCH MORE PLEASANT THIS SHIFT. PT NOTED TO BE INTERACTING APPROPRIATELY WITH STAFF AND PEERS. PT COMPLIANT WITH MEDICATIONS. PT ATE HS SNACK, REQUESTING SOME EXTRA, WENT TO BED AFTER WITH NO ADVERSE MOODS OR BEHAVIORS NOTED. WILL CONTINUE TO MONITOR Q15 MIN PER POLICY FOR SAFETY. WILL CONTINUE TO ENCOURAGE APPROPRIATE INTERACTIONS WITH STAFF AND PEERS.
--- NOTE | 2019-08-14 05:48 | NUR ---
PT SLEPT AN INTERRUPTED 5 HOURS.
[2019-08-14 07:43] VITALS: BP 108/67
[2019-08-14] MEDS ORDERED: GEODON20 M1 IM (08:05)
[2019-08-14] MEDS ORDERED: QUETIAPINE FUM100 M3 PO (08:05)
[2019-08-14] MEDS ORDERED: DIVALPROEX SOD500 MG PO (08:05)
[2019-08-14] MEDS ORDERED: PRISTIQ50 MG PO (08:05)
[2019-08-14] MEDS ORDERED: QUETIAPINE FUMA50 M1 PO (08:05)
[2019-08-14] MEDS ORDERED: LORAZEPAM1 MG PO (08:05)
--- NOTE | 2019-08-14 08:10 | NUR ---
PHYSICAL THERAPY Patient was eating breakfast when first approached for therapy visit and now sound asleep upon second attempt. Will continue later this date per POC as able. Bandar Huitron, MARINE BIOLOGIST
--- NOTE | 2019-08-14 08:15 | NUR ---
Treatment Plan meeting was held with CAESAR Drew RN, AT, [facility] and Patient Care in attendance. Plan for discharge today with return to [facility].
--- NOTE | 2019-08-14 08:30 | NUR ---
Transportation arranged with [facility] to Transport with roller picker time 10:00 a.m.
--- NOTE | 2019-08-14 09:19 | NUR ---
DR. STAPLES NOTIFIED OF PATIENT BEING DISCHARGED TODAY, TO INFORM DR. SOUZA OF DISCHARGE.
--- NOTE | 2019-08-14 09:34 | NUR ---
Spoke with Legal Guardian Evan Lynn via telephone. Notified of Plans to discharge today with return to [facility] and tune up mechanic time 10:00 a.m. Discharge Paperwork Faxed to Facility.
--- NOTE | 2019-08-14 09:45 | NUR ---
NURSE TO NURSE REPORT GIVEN TO DARA AT [facility].
--- NOTE | 2019-08-14 09:47 | NUR ---
DR. SOUZA ON UNIT TO ASSESS PATIENT AND AWARE OF DISCHARGE.
--- NOTE | 2019-08-14 10:16 | NUR ---
[facility] SERVICE PRESENT. PATIENT READY FOR DISCHARGE. PATIENT ASSISTED TO [facility]. ALL DISCHARGE INSTRUCTION AND BELONGING SENT WITH PATIENT OFF UNIT.
--- NOTE | 2019-08-14 13:43 | NUR ---
Patient discharged today returning to [facility] under LTC. Follow-up will be with [id number], visiting psychiatric service. While at [facility], pt was irritable at times but did not display aggressive behavior nor voice paranoid delusions. Pt preferred to isolate in her room and rarely participated in programming.
== END 2019-08-14 10:16 | DRG 750 ==
LOC: 3N 23:50
PROVIDERS: Counselor Professional; Family Medicine; Registered Nurse; ADMIT Psychiatry & Neurology Psychiatry
DX: F25.0 Schizoaffective disorder, bipolar type (principal); G40.909 Epilepsy, unspecified, not intractable, without status epilepticus; G89.29 Other chronic pain; J43.9 Emphysema, unspecified; F41.9 Anxiety disorder, unspecified; N39.3 Stress incontinence (female) (male); E03.9 Hypothyroidism, unspecified; E78.1 Pure hyperglyceridemia; F10.10 Alcohol abuse, uncomplicated; F17.210 Nicotine dependence, cigarettes, uncomplicated; I10 Essential (primary) hypertension; Z90.710 Acquired absence of both cervix and uterus; Z79.899 Other long term (current) drug therapy; Z79.82 Long term (current) use of aspirin; Z91.030 Bee allergy status